=== PATIENT | female | born 1995 | race Caucasian/White ===

== ENCOUNTER → 2018-11-23 | Outpatient (CLI) | payer OTHER ==
[~2018-11-23] MED LIST: FLUT16SP19 NS; NORG1TAB74 PO; PRED-420 PO
== END ==
LOC: LAB 17:09
PROVIDERS: ATTEND Internal Medicine
DX: J04.0 Acute laryngitis (principal)
CPT/HCPCS: 87070

== ENCOUNTER 2019-06-14 03:02 | Day surgery (SDC) | payer OTHER ==
[~2019-06-14] VITALS: Ht 165.1 cm; Wt 52.2 kg
[~2019-06-14 03:02] MED LIST changes: +OMEP-137 PO
[2019-06-14] MEDS ORDERED: LIDOCAINE MPF 1% 5 ML VIAL ONE (09:12)
[2019-06-14] MEDS ORDERED: PROPOFOL EMUL(*) 10MG/ML 20 ML 40 ML ONE (09:12)
[2019-06-14] MEDS ORDERED: GLYCOPYRROLATE 0.2MG/ML 1 ML INJ IVP ONE (09:45)
[2019-06-14 10:42] VITALS: BP 130/81
[2019-06-14 12:00] VITALS: BP 97/60
[2019-06-14 12:23] VITALS: BP 100/81
[2019-06-14 12:45] VITALS: BP 114/70
[2019-06-14 13:20] VITALS: BP 117/67
[2019-06-14 13:21] VITALS: BP 114/72
[2019-06-14] MEDS ORDERED: NORMOSOL R SOLN(*) 1000 ML BAG 1,000 ML IV PRN (13:40)
[2019-06-14] MEDS ORDERED: LIDOCAINE/SOD BICARB 8.4% SYR ID ONE (13:40)
== END 2019-06-14 14:10 | disposition home or self-care (01) ==
LOC: OR 03:02
PROVIDERS: ATTEND Internal Medicine Gastroenterology
DX: K44.9 Diaphragmatic hernia without obstruction or gangrene (principal); K20.9 Esophagitis, unspecified
CPT/HCPCS: 43239; 81025; 88305; 88313; J2001; J2704; J3490